=== PATIENT | female | born 1980 | race Hispanic/Latino ===

== ENCOUNTER 2017-06-24 11:42 | Outpatient (CLI) | payer OTHER ==
[2017-06-24] VITALS (11 sets, daily range): BP systolic 97–125; BP diastolic 52–63
[~2017-06-24] VITALS: Ht 154.9 cm; Wt 68.9 kg
[2017-06-24] MEDS ORDERED: TRUVADA 100 MG1 EACH PO (11:57)
[2017-06-24] MEDS ORDERED: NORVIR100 M1 PO (11:57)
[2017-06-24] MEDS ORDERED: REYATAZ300 MG PO (11:59)
[2017-06-24 12:34] LABS: AMPHETAMINE NEGATIVE (500 ng/mL); APPEARANCE CLEAR ((CLEAR)); BARBITURATES NEGATIVE (200 ng/mL); BENZODIAZEPINES NEGATIVE (150 ng/mL); BILIRUBIN NEGATIVE; BLOOD SMALL; BUPRENORPHINE NEGATIVE (10 ng/mL); COCAINE NEGATIVE (150 ng/mL); COLOR YELLOW ((YELLOW)); GLUCOSE (STRIP) NEGATIVE; KETONES NEGATIVE; LEUKOCYTES MODERATE; METHADONE NEGATIVE (200 ng/mL); METHAMPHETAMINE NEGATIVE (500 ng/mL); NITRITE NEGATIVE; OPIATES (MORPHINE) NEGATIVE (100 ng/mL); OXYCODONE NEGATIVE (100 ng/mL); PHENCYCLIDINE NEGATIVE (25 ng/mL); PROPOXYPHENE NEGATIVE (300 ng/mL); PROTEIN (STRIP) NEGATIVE; SPECIFIC GRAVITY 1.005 (1.000-1.030); THC CANNABINOIDS NEGATIVE (50 ng/mL); TRICYCLIC ANTIDEPRESSANTS NEGATIVE (300 ng/mL); UROBILINOGEN 0.2 MG/DL (0.2-1.0)
[2017-06-24 12:41] LABS: BACTERIA RARE /HPF; EPITHELIAL CELLS RARE /HPF; MUCUS NONE SEEN /LPF; RED BLOOD CELLS 0-5 /HPF (0-5); UCUL ADDED? YES
[2017-06-24 13:29] LABS: BASOPHIL (%) 0.1 % (0-1); EOSINOPHIL (%) 0.6 % (0-5); EOSINOPHIL COUNT 0.1 K/uL (0-0.3); HEMATOCRIT 26.4 % (36.0-46.0); HEMOGLOBIN 8.9 G/DL (11.9-15.5); IMMATURE GRANULOCYTE (%) 0.9 % (0.0-0.7); LYMPHOCYTE (%) 14.8 % (15-42); LYMPHOCYTE COUNT 1.5 K/uL (1.0-2.8); MCH 29.8 PG (29.0-34.0); MCHC 33.7 G/DL (30.0-36.0); MCV 88.3 FL (83-99); MONOCYTE (%) 4.2 % (3-12); MONOCYTE COUNT 0.4 K/uL (0-0.8); NEUTROPHIL (%) 79.4 % (45-76); NEUTROPHIL COUNT 7.8 K/uL (1.8-6.4); PLATELET COUNT 262 K/uL (156-360); RBC DIS.WIDTH-CV 13.6 % (11.8-14.6); RBC DIS.WIDTH-SD 43.8 % (39-53); RED BLOOD COUNT 2.99 M/uL (3.80-5.20); WHITE BLOOD COUNT 9.8 K/uL (4.1-10.2)
[2017-06-24 13:36] LABS: ALBUMIN 3.3 g/dL (3.2-4.8); CHLORIDE 108 mEq/L (99-109); POTASSIUM 3.5 mEq/L (3.7-5.4); SODIUM 138 mEq/L (136-147)
[2017-06-24 13:39] LABS: GLUCOSE 113 mg/dL (70-99); TOTAL PROTEIN 6.9 g/dL (6.4-8.3)
[2017-06-24 13:41] LABS: TOTAL BILIRUBIN 0.2 mg/dL (0.0-1.0)
[2017-06-24 13:42] LABS: ALKALINE PHOSPHATASE 115 IU/L (3-129); CREATININE 0.6 mg/dL (0.6-1.3); GFR ESTIMATE (CALCULATED) > 59 mL/min/
[2017-06-24 13:43] LABS: UREA NITROGEN (BUN) 4 mg/dL (9-23)
[2017-06-24 13:44] LABS: AST (GOT) 17 IU/L (2-34)
[2017-06-24 13:45] LABS: ALT (GPT) 12 IU/L (3-49)
[2017-06-24 16:53] LABS: SOURCE URINE
[2017-06-24 17:38] LABS: CANDIDA DNA PROBE NEGATIVE; GARDNERELLA DNA PROBE POSITIVE; TRICHOMONAS DNA PROBE NEGATIVE
[2017-06-25] VITALS (9 sets, daily range): BP systolic 90–106; BP diastolic 52–59
[2017-06-26 03:58] VITALS: BP 96/54
[2017-06-26 07:37] VITALS: BP 106/57
[2017-06-26 11:01] VITALS: BP 115/59
[2017-06-26 13:21] VITALS: BP 102/55
[2017-06-28 12:21] LABS: CHLAMYDIA TRACHOMATIS INVALID; NEISSERIA GONORRHOEAE INVALID
== END 2017-06-26 14:45 | disposition short-term general hospital (02) ==
LOC: LDRP-OP 11:42 → 2WEST 11:43
PROVIDERS: Advanced Practice Midwife; Obstetrics & Gynecology
DX: O42.912 Preterm premature rupture of membranes, unspecified as to length of time between rupture and onset of labor, second trimester (principal); O32.1XX0 Maternal care for breech presentation, not applicable or unspecified; Z3A.22 22 weeks gestation of pregnancy; O98.712 Human immunodeficiency virus [HIV] disease complicating pregnancy, second trimester; Z21 Asymptomatic human immunodeficiency virus [HIV] infection status; O09.522 Supervision of elderly multigravida, second trimester; O34.219 Maternal care for unspecified type scar from previous cesarean delivery; O34.32 Maternal care for cervical incompetence, second trimester; O99.012 Anemia complicating pregnancy, second trimester; D64.9 Anemia, unspecified
CPT/HCPCS: 59025; 76805; 76815; 80053; 81003; 85025; 86850; 86900; 86901; 87081; 87086; 87480; 87491; 87510; 87591; 87660; G0378; J0290; J0702; J3105; J7050; J7120